=== PATIENT | female | born 1940 | race Caucasian/White ===

== ENCOUNTER 2019-11-10 12:40 | Emergency (ER) | payer MEDICARE, OTHER, SELFPAY ==
[2019-11-10 12:46] VITALS: BMI 36.2
--- NOTE | 2019-11-10 12:47 | ED_ITS ---
Entered by Gwendolyn Coleman, acting as scribe for Dylan Navarro DO HPI - Neuro Symptoms/Deficit General: Chief Complaint: Neuro Symptoms/Deficit Stated Complaint: possible stroke Time Seen by Provider: 11/10/19 12:47 Source: patient and family Mode of arrival: ambulatory Limitations: no limitations History of Present Illness: HPI Narrative: 79 yo female presents with dizziness. pt states this started around 12:45 today. pt states this is worsened with sudden movements. per family pt has a hx of TIA's. pt and family denies any other symptoms at this time. pt has a hx of dementia. 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 History of same: No Severity: mild Relieving factors: none Exacerbating factors: none Context: sudden onset (12:15) Associated symptoms: Reports other (dizziness); Deny chest pain, headache(s), malaise, nausea, syncope or vomiting Treatments Prior to Arrival: none Review of Systems General: Reports: 10 or more systems reviewed and unremarkable except in HPI and below Const: Denies: fever, chills, body aches, fatigue, malaise or night sweats Eyes: Denies: change in vision or blurry vision ENMT: Denies: throat pain, oral sores/lesions, dental pain, nasal discharge or nasal congestion Card: Denies: chest pain, palpitations, irregular heart rhythm, edema, syncope, shortness of breath on exertion, shortness of breath when lying down or leg pain with exertion Resp: Denies: shortness of breath, productive cough, non-productive cough or wheezing GI: Denies: abdominal pain, nausea, vomiting, vomiting blood, coffee grounds in vomit, difficulty swallowing, heartburn/indigestion, diarrhea, constipation, cramping, blood in stool or black tarry stool : Denies: flank pain, painful urination, urinary frequency, urinary urgency, urinary incontinence or blood in urine Musc: Denies: neck pain, back pain, extremity pain, extremity swelling, joint pain or joint swelling Skin/Breast: Denies: rash, itching or redness Neuro: Denies: headache, numbness in extremities, weakness in extremities, changes in sensation, lack of coordination, difficulty walking, frequent falls or confusion Psych: Denies: anxiety, depression, loss of interest, visual hallucinations, auditory hallucinations, suicidal ideation or homicidal ideation Endo: Denies: excessive urination, excessive thirst, tired all the time or cold intolerance Trey/Lymph: Denies: easy bruising, easy bleeding, petechiae, enlarged lymph nodes or tender lymph nodes PFSH ED PFSH: Statuses (acute, chronic, etc) shown below reflect problem list status as previously entered and may not be historically accurate Medical History (Updated 11/10/19 @ 14:48 by Dylan Navarro DO) History of TIA (transient ischemic attack) (Acute) Social History Smoking and tobacco status: former smoker NIH stroke score NIHSS: Level Of Consciousness - 1a: 0 Level Of Consciousness Questions - 1b: One Correct Level Of Consciousness Commands - 1c: Both Correct Best Gaze - 2: Normal Visual Hightower - 3: No Visual Loss Facial Palsy - 4: Normal Motor Arm Right - 5: No Drift Motor Arm Left - 5: No Drift Motor Leg Right - 6: No Drift Motor Leg Left - 6: No Drift Limb Ataxia - 7: Absent Sensory - 8: Normal Best Language - 9: No Aphasia Dysarthia - 10: Normal Extinction And Inattention - 11: 0 Score: Total Score: 1 Physical Exam Const: COMMON NORMALS: average body habitus GENERAL APPEARANCE: cooperat kezia, comfortable, well kempt and well developed NUTRITIONAL APPEARANCE: obese ORIENTATION/CONSCIOUSNESS: Yes awake and Yes oriented to place HENMT: COMMON NORMALS: normocephalic, head/scalp atraumatic, EAC's normal, TM's normal bilaterally, external nose normal, moist oral mucous membranes and oropharynx normal HEAD & SCALP: normocephalic and atraumatic NOSE: external nose normal EXTERNAL AUDITORY CANAL: EAC's normal TYMPANIC MEMBRANE: TM's normal bilaterally MOUTH: oral and palatal mucosa normal, lip normal and tongue normal THROAT: posterior oropharynx normal and tonsils normal Eye: COMMON NORMALS: PERRL, EOMs intact bilaterally, conjunctivae normal and no scleral icterus CONJUNCTIVA: Yes conjunctivae normal PUPIL: Yes PERRL Neck/C-Spine: COMMON NORMALS: full ROM, no lymphadenopathy, supple, no meningeal signs and thyroid normal THYROID: thyroid normal and asymmetrical Lymph: LYMPHATIC: no lymphadenopathy noted Resp: COMMON NORMALS: normal respiratory effort, no retractions, no use of accessory muscles and clear to auscultation bilaterally AUSCULTATION: clear to auscultation bilaterally Cardio: COMMON NORMALS: regular rate and regular rhythm RATE: regular rate RHYTHM: regular rhythm HEART SOUNDS: no murmurs GI: COMMON NORMALS: normal to inspection, nondistended, normoactive bowel sounds, soft to palpation and no hepatosplenomegaly PALPATION: Yes soft and Yes no hepatosplenomegaly : COMMON NORMALS: Yes no CVA tenderness BLADDER/KIDNEY EXAM: Yes no CVA tenderness Back/Pelvis: COMMON NORMALS: no CVA tenderness LUMBAR SPINE/LOWER BACK: Yes normal to inspection Extremity: COMMON NORMALS: no clubbing, cyanosis or edema, no calf tenderness and no pedal edema Neuro: SENSORIUM/ORIENTATION: Yes oriented to place MENINGEAL SIGNS: Yes no meningeal signs Psych: APPEARANCE: Yes well kempt Skin: COMMON NORMALS: no rashes or lesions noted and skin turgor normal GENERAL SKIN EXAM: no rashes or lesions noted and turgor normal Course ED course: CT shows remote strokes. At this time nothing acute nothing indicative by physical exam or imaging. Is not a really good last known well time. Her stroke score is 1 and I think that is more attributable to with her dementia. At this point would not recommend any sort of intervention. Recommend continuing aspirin daily follow-up with primary care. Vital Signs: Vital signs: Vital Signs Temperature 97.6 F 11/10/19 12:50 Pulse Rate 75 11/10/19 15:04 Respiratory Rate 20 H 11/10/19 15:04 Blood Pressure 179/85 11/10/19 15:04 Pulse Oximetry 97 11/10/19 15:04 MDM - Neuro Symptoms/Deficit Lab Data: Labs: Lab Results 11/10/19 11/10/19 11/10/19 Range/Units 13:01 13:09 13:09 WBC 7.2 (4.0-10.0) 10^3/ uL RBC 4.40 (4.1-5.3) 10^6/u L Hgb 14.4 (11.5-15.3) g/dL Hct 45.5 (37.0-47.0) % MCV 103.4 H (81-99) fL MCH 32.7 (28.0-34.0) pg MCHC 31.6 (30.0-36.0) g/dL RDW 12.6 (12.1-15.1) % Plt Count 164 (130-400) 10^3/c mm MPV 11.1 H (7.4-10.4) fL Neut % (Auto) 66.5 % Lymph % (Auto) 20.9 % [place] % (Auto) 9.2 % Eos % (Auto) 2.7 % Baso % (Auto) 0.4 % Neut # (Auto) 4.8 (1.8-7.7) 10^3/u L Lymph # (Auto) 1.5 (0.8-4.8) 10^3/u L [place] # (Auto) 0.7 (0.2-0.9) 10^3/u L Eos # (Auto) 0.2 (0.0-0.8) 10^3/u L Baso # (Auto) 0.0 (0.0-0.1) 10^3/u L Nucleated RBC % (a uto) 0 % Nucleated RBCs # 0.0 /100WBC PT 13.70 H (10.5-13.3) SECO NDS INR 1.01 (0.8-1.2) APTT 28.0 (23.9-36.7) SECO NDS Sodium (136-145) mmol/L Potassium (3.5-5.1) mmol/L Chloride (98-107) mmol/L Carbon Dioxide (22-29) mmol/L Anion Gap (5-19) BUN (8-23) mg/dL Creatinine (0.5-0.9) mg/dL Glucose (65-115) mg/dL POC Glucose 72 (70-110) mg/dL Calcium (8.5-10.5) mg/dL Total Bilirubin (0.15-1.2) mg/dL AST (0-32) U/L ALT (0-33) U/L Alkaline Phosphata se (35-105) IU/L Total Protein (6.6-8.7) g/dL Albumin (3.5-5.2) g/dL Globulin (1.3-4.6) g/dL 11/10/19 Range/Units 13:09 WBC (4.0-10.0) 10^3/ uL RBC (4.1-5.3) 10^6/u L Hgb (11.5-15.3) g/dL Hct (37.0-47.0) % MCV (81-99) fL MCH (28.0-34.0) pg MCHC (30.0-36.0) g/dL RDW (12.1-15.1) % Plt Count (130-400) 10^3/c mm MPV (7.4-10.4) fL Neut % (Auto) % Lymph % (Auto) % [place] % (Auto) % Eos % (Auto) % Baso % (Auto) % Neut # (Auto) (1.8-7.7) 10^3/u L Lymph # (Auto) (0.8-4.8) 10^3/u L [place] # (Auto) (0.2-0.9) 10^3/u L Eos # (Auto) (0.0-0.8) 10^3/u L Baso # (Auto) (0.0-0.1) 10^3/u L Nucleated RBC % (a uto) % Nucleated RBCs # /100WBC PT (10.5-13.3) SECO NDS INR (0.8-1.2) APTT (23.9-36.7) SECO NDS Sodium 142 (136-145) mmol/L Potassium 4.5 (3.5-5.1) mmol/L Chloride 104 (98-107) mmol/L Carbon Dioxide 27 (22-29) mmol/L Anion Gap 15.5 (5-19) BUN 24 H (8-23) mg/dL Creatinine 0.8 (0.5-0.9) mg/dL Glucose 103 (65-115) mg/dL POC Glucose (70-110) mg/dL Calcium 9.9 (8.5-10.5) mg/dL Total Bilirubin 0.4 (0.15-1.2) mg/dL AST 26 (0-32) U/L ALT 36 H (0-33) U/L Alkaline Phosphata se 87 (35-105) IU/L Total Protein 7.1 (6.6-8.7) g/dL Albumin 4.3 (3.5-5.2) g/dL Globulin 2.8 (1.3-4.6) g/dL Imaging Data^: CT Head: Radiologist's impression: [facility] [address] [place] [address] CT Scan Report Signed Patient: Adore Arnold #: [id number] : 1940Acct#:[id number] Age/Sex: 79 / FADM Date: 11/10/19 Loc: ERRoom/Bed: Attending Dr: Ordering Provider/Ordering MD: Dylan Navarro DO Date of Service: 11/10/19 Procedure(s): CT head wo con* [id number] Accession Number(s): [id number] Report Number: [id number] WS: [id number] CT HEAD NONCONTRAST HISTORY: Symptoms of Acute Stroke TECHNIQUE: Contiguous axial imaging performed through the brain in 2.5 mm imaging. Bone and soft tissue windows. Sagittal and coronal reformats reviewed. All CT scans at [facility] use at least one of these dose optimization techniques: automated exposure control; mA and/or kV adjustment per patient size (includes targeted exams where dose is matched to clinical indicat ion); or iterative reconstruction. DLP: 806.97 mGy.cm COMPARISON: 2016 No acute intracranial hemorrhage, midline shift or mass effect. Remote infarct involving the LEFT posterior cerebral arterial distribution. Infarct extends around the temporal horn of the LEFT lateral ventricle. Prior infarct in the LEFT thalamus. Additional chronic microvascular ischemic changes. Ventricles: Mildly prominent ventricles on the basis of atrophy. Paranasal sinuses: As visualized are clear. Mastoid air cells: Well pneumatized. Calvarium and scalp: Skull is intact with no soft tissue edema or swelling. Notified Dylan Navarro DO at 11/10/2019 2:[address]/CT head wo con* [id number] IMPRESSION: 1. No acute hemorrhage or infarct. 2. Large remote LEFT DENTAL DETAIL REPRESENTATIVE territory infarct and remote lacunar infarct RIGHT thalamus. Dictated By:Allison Valiente DO Signed By:Allison Valiente DOSigned Date/Time:11/10/19 1400 Discharge Plan Discharge Patient Disposition: Home, Self-Care Clinical Impression: Transient cerebral ischemia, Dementia, Benign essential HTN Condition: Stable Prescriptions: New aspirin 81 mg tablet,delayed release (DR/EC) 81 mg PO DAILY Qty: 30 RF: 0 lisinopril 10 mg tablet 10 mg PO DAILY Qty: 30 RF: 0 No Action atorvastatin 40 mg Tablet 40 mg PO DAILY RF: 0 carvedilol 6.25 mg tablet 6.25 mg PO BID RF: 0 cod liver oil Capsule 1 cap PO DAILY RF: 0 clopidogrel 75 mg tablet 75 mg PO DAILY RF: 0 citalopram 20 mg Tablet 20 mg PO DAILY RF: 0 L-Lysine 500 mg Tablet 500 mg PO DAILY RF: 0 Ocuvite Eye Health 50 mg-15 unit- 4.5 mg-2.5 mg Tablet,Chewable 1 tab PO DAILY RF: 0 Discharge Orders: Discharge Order (Routine); Ordered 11/10/19 Ordered By: Dylan Navarro Referrals: Abdi Jara DO [Primary Care Provider] - Discharge Diet: Usual diet Discharge Activity: Resume usual activity Activity Restrictions/Additional Instructions: 81 mg aspirin daily, follow-up with your primary care doctor return if further problems Discharge Date/Time: 11/10/19 15:05 Coding Level of Care Code ED Document Coordinator for Chg Fwd Exam Problem Focused The documentation recorded by the Jared chao Bridget Annette, accurately reflects the service I personally performed and the decisions made by Melanie ramirez Curtis L, DO Nov 10, 2019 12:40
[2019-11-10 12:50] VITALS: BP 202/83; PULSE 51; RESP 18; TEMP 36.4; O2SAT 96
--- NOTE | 2019-11-10 12:50 | ECG_ITS ---
Measurements Intervals [place] Rate: 50 P: 71 ME: 156 QRS: -10 QRSD: 83 T: 58 QT: 444 QTc: 407 SINUS BRADYCARDIA Compared to ECG 06/29/2016 15:14:17 Sinus rhythm no longer present Electronically Signed On 11-10-2019 20:06:38 JAPANESE INTERPRETER by Aldair Vazquez M.D. [email or web address]
--- NOTE | 2019-11-10 12:50 | CT_ITS ---
WS: [id number] CT HEAD NONCONTRAST HISTORY: Symptoms of Acute Stroke TECHNIQUE: Contiguous axial imaging performed through the brain in 2.5 mm imaging. Bone and soft tiss ue windows. Sagittal and coronal reformats reviewed. All CT scans at [facility] use at ast one of these dose optimization techniques: automated exposure control; mA and/or kV adjustment pe r patient size (includes targeted exams where dose is matched to clinical indication); or iterative r econstruction. DLP: 806.97 mGy.cm COMPARISON: 2016 No acute intracranial hemorrhage, midline shift or mass effect. Remote infarct involving the LEFT posterior cerebral arterial distribution. Infarct extends around th e temporal horn of the LEFT lateral ventricle. Prior infarct in the LEFT thalamus. Additional chroni c microvascular ischemic changes. Ventricles: Mildly prominent ventricles on the basis of atrophy. Paranasal sinuses: As visualized are clear. Mastoid air cells: Well pneumatized. Calvarium and scalp: Skull is intact with no soft tissue edema or swelling. Notified Dylan Navarro DO at 11/10/2019 2:[address]/CT head wo con* [id number] IMPRESSION: 1. No acute hemorrhage or infarct. 2. Large remote LEFT CORE MAKER territory infarct and remote lacunar infarct RIGHT th alamus.
[2019-11-10 13:04] LABS: Glucose Point of Care 72 mg/dL (70-110)
[2019-11-10 13:13] VITALS: O2SAT 97
[2019-11-10 13:18] LABS: Basophils % 0.4 %; Eosinophils # 0.2 10^3/uL (0.0-0.8); Eosinophils % 2.7 %; Hematocrit 45.5 % (37.0-47.0); Hemoglobin 14.4 g/dL (11.5-15.3); Lymphocytes # 1.5 10^3/uL (0.8-4.8); Lymphocytes % 20.9 %; Mean Corpuscular HGB Conc 31.6 g/dL (30.0-36.0); Mean Corpuscular Hemoglobin 32.7 pg (28.0-34.0); Mean Corpuscular Volume 103.4 fL (81-99); Mean Platelet Volume 11.1 fL (7.4-10.4); Monocytes # 0.7 10^3/uL (0.2-0.9); Monocytes % 9.2 %; Neutrophils # 4.8 10^3/uL (1.8-7.7); Neutrophils % 66.5 %; Nucleated Red Blood Cells % 0 %; Platelet Count 164 10^3/cmm (130-400); Red Cell Distribution Width 12.6 % (12.1-15.1); White Blood Count 7.2 10^3/uL (4.0-10.0)
[2019-11-10 13:25] LABS: INR 1.01 (0.8-1.2)
[2019-11-10 13:41] LABS: Alanine Aminotransferase 36 U/L (0-33); Albumin Level 4.3 g/dL (3.5-5.2); Alkaline Phosphatase 87 IU/L (35-105); Anion Gap 15.5 (5-19); Aspartate Amino Transferase 26 U/L (0-32); Blood Urea Nitrogen 24 mg/dL (8-23); Calcium 9.9 mg/dL (8.5-10.5); Carbon Dioxide 27 mmol/L (22-29); Chloride 104 mmol/L (98-107); Globulin 2.8 g/dL (1.3-4.6); Glucose 103 mg/dL (65-115); Potassium 4.5 mmol/L (3.5-5.1); Sodium 142 mmol/L (136-145); Total Bilirubin 0.4 mg/dL (0.15-1.2); Total Protein 7.1 g/dL (6.6-8.7)
[2019-11-10] MEDS: sodium chloride 0.9% 1,000 ML 999 ML IV (14:04)
[2019-11-10 15:04] VITALS: BP 179/85; PULSE 75; RESP 20; O2SAT 97
== END 2019-11-10 15:05 | disposition home or self-care (01) ==
PROVIDERS: Emergency Provider Family Medicine; Family Provider Electrodiagnostic Medicine; PCP Electrodiagnostic Medicine
DX: G45.9 Transient cerebral ischemic attack, unspecified (principal); F03.90 Unspecified dementia, unspecified severity, without behavioral disturbance, psychotic disturbance, mood disturbance, and anxiety; I10 Essential (primary) hypertension; Z79.02 Long term (current) use of antithrombotics/antiplatelets; Z87.891 Personal history of nicotine dependence; Z86.73 Personal history of transient ischemic attack (TIA), and cerebral infarction without residual deficits
CPT/HCPCS: 36415; 36416; 70450; 80053; 82962; 85025; 85610; 85730; 93005; 96360; 99283; 99284; J7030

== ENCOUNTER 2020-07-23 14:19 | Emergency (ER) | payer MEDICARE, OTHER, SELFPAY ==
[2020-07-23 14:21] VITALS: BP 162/74; PULSE 73; RESP 18; TEMP 36.6; O2SAT 100; BMI 54.8
--- NOTE | 2020-07-23 14:40 | CTR_ITS ---
PROCEDURE INFORMATION: Exam: CT Maxillofacial Without Contrast Exam date and time: 07/23/2020 2:45 PM Age: 80 years old Clinical indication: Injury or trauma; Fall; Blunt trauma (contusions or hematomas); Nose; Additional info: Fall, facial injury TECHNIQUE: Imaging protocol: Computed tomography images of the face without contrast. Radiation optimization: All CT scans at this facility use at least one of these dose optimization techniques: automated exposure control; mA and/or kV adjustment per patient size (includes targeted exams where dose is matched to clinical indication); or iterative reconstruction. COMPARISON: No relevant prior studies available. RADIATION DOSE METRICS: Total DLP (mGy-cm): 722.49 FINDINGS: Orbital cavity: Orbits are normal. Globes are unremarkable. Bones/joints: There is a bilateral comminuted nasal fracture. No other fractures are identified. The orbital angulo, zygomatic arch and pterygoid plates are intact. Paranasal sinuses: Normal. No air-fluid levels. Soft tissues: There is a small amount of gas in the soft tissues adjacent to the nasal bone fracture. CT/CT facial bones wo con* [id number] IMPRESSION: There is a bilateral comminuted nasal fracture. Radiation Dose CTDIVOL = (mGy): DLP = 722.49 (mGy-cm)
--- NOTE | 2020-07-23 14:40 | CTR_ITS ---
PROCEDURE INFORMATION: Exam: CT Head Without Contrast Exam date and time: 07/23/2020 2:45 PM Age: 80 years old Clinical indication: Injury or trauma; Fall; Blunt trauma (contusions or hematomas); Injury date: Today; Additional info: Fall, head injury TECHNIQUE: Imaging protocol: Computed tomography of the head without contrast. Radiation optimization: All CT scans at this facility use at least one of these dose optimization techniques: automated exposure control; mA and/or kV adjustment per patient size (includes targeted exams where dose is matched to clinical indication); or iterative reconstruction. COMPARISON: CT head wo con* [id number] 11/10/2019 1:51 PM RADIATION DOSE METRICS: Total DLP (mGy-cm): 2680.17 FINDINGS: Brain: There is encephalomalacia in the left parietooccipital lobe. Moderate white matter disease and volume loss are identified. There is no acute infarct or edema. No intracranial hemorrhage. Cerebral ventricles: No ventriculomegaly. Bones/joints: There is a bilateral comminuted nasal fracture. Paranasal sinuses: Visualized sinuses are unremarkable. No fluid levels. Mastoid air cells: Visualized mastoid air cells are well aerated. Soft tissues: There is superficial soft tissue swelling along the midline frontal calvarium. CT/CT head wo con* [id number] IMPRESSION: There is a comminuted nasal fracture. No intracranial hemorrhage. Radiation Dose CTDIVOL = (mGy): DLP = 2680.17 (mGy-cm)
--- NOTE | 2020-07-23 14:44 | ED_ITS ---
HPI - Fall General: Chief Complaint: Fall Stated Complaint: FALL/HEAD INJURY Time Seen by Provider: 07/23/20 14:33 Source: patient and family (daughter) Mode of arrival: ambulatory Limitations: no limitations History of Present Illness: HPI Narrative: Patient is an 80-year-old female who was walking in a store that has uneven floors and she lost her balance, falling face first onto the concrete floor. She has a large hematoma on her forehead, laceration to the bridge of her nose, and some abrasions to her upper lips. She denies loss of consciousness. She complains of pain in the area of injuries on the head and face. She does not take anticoagulation but he is on aspirin and Plavix. complaint: fall Fall from: standing Fall witnessed: yes, by family Place fall occurred: other ([employer]) Loss of consciousness: None Prolonged down time: no Symptoms prior to fall: none Context: tripped/slipped Location of injury: head and face Quality: sharp Associated symptoms-after fall: Denies abdominal pain, headache(s) or neck pain Review of Systems General: Reports: 10 or more systems reviewed and unremarkable except in HPI and below Const: Denies: fever(s), chills or body aches Eyes: Denies: change in vision or blurry vision ENMT: Reports: epistaxis; Denies: throat pain, enlarged tonsils, odynophagia, hoarseness, mouth pain or swelling of lips/tongue Card: Denies: palpitations, irregular heart rhythm, edema or swelling of feet/ankles Resp: Denies: dyspnea, productive cough or non-productive cough GI: Denies: abdominal pain, nausea or vomiting : Denies: flank pain, difficulty voiding, dysuria, urinary frequency, urinary urgency or urinary hesitancy Musc: Denies: neck pain, back pain or extremity swelling Skin/Breast: Reports: sores; Denies: rash, pruritus or erythema Neuro: Denies: headache(s), numbness in extremities or weakness in extremities Endo: Denies: polyuria, polydipsia or tired all the time [facility] ED PFSH: Medical History History of TIA (transient ischemic attack) Social History Smoking and tobacco status: former smoker Physical Exam Const: COMMON NORMALS: no acute distress, average body habitus, patient oriented x3, no limitations, healthy appearing, alert and well nourished HENMT: COMMON NORMALS: normocephalic and moist oral mucous membranes HEAD & SCALP: normocephalic, abrasion, contusion, hematoma (large hematoma on her forehead) and other (2 cm laceration to the bridge of her nose.) FACE & SINUS: abrasion NOSE: Abnormal external nose present Eye: COMMON NORMALS: Equal, round and reactive pupils present, EOMs intact bilaterally, conjunctivae normal and no scleral icterus CONJUNCTIVA: Yes conjunctivae normal PUPIL: Yes Equal, round and reactive pupils present Neck/C-Spine: COMMON NORMALS: full ROM, supple, no meningeal signs, no JVD and No carotid bruits Chest: COMMONS NORMALS: normal inspection of the chest and normal palpation of entire chest wall Resp: COMMON NORMALS: normal respiratory effort, No retractions, No use of accessory muscles, clear to auscultation bilaterally and percussion normal AUSCULTATION: clear to auscultation bilaterally PERCUSSION: percussion normal Cardio: COMMON NORMALS: no JVD, regular rate, regular rhythm, S1 normal heart sound present, S2 normal heart sound present, No gallops present (Cardio), No clicks present (Cardio), No murmurs present (Cardio), No rub (Cardio) and Peripheral pulses 2+ throughout RATE: regular rate RHYTHM: regular rhythm HEART SOUNDS: S1 normal heart sound present and S2 normal heart sound present PERIPHERAL PULSES: Peripheral pulses 2+ throughout GI: COMMON NORMALS: Normal to inspection, nondistended, normoactive bowel sounds present, Soft to palpation, non-tender, No hepatosplenomegaly present, no masses and no bruits PALPATION: Yes Soft to palpation and Yes No hepatosplenomegaly present Extremity: COMMON NORMALS: normal to inspection, full ROM, capillary refill normal, no calf tenderness and no pedal edema Neuro: COMMON NORMALS: patient oriented x3 SENSORIUM/ORIENTATION: Yes alert MENINGEAL SIGNS: Yes no meningeal signs Skin: COMMON NORMALS: no rashes or lesions noted, no wounds, turgor normal, no jaundice, no petechiae and no mottling GENERAL SKIN EXAM: no rashes or lesions noted and turgor normal Procedures Laceration Laceration 1: Site: face (nose) Size (cm): 2 Description: linear Depth: simple, single layer Local Anesthetic: lidocaine 1% and with epi Amount of anesthesia used (mL): 3 Pre-repair: wound explored and irrigated extensively Skin layer closed with: nylon Size (cm): 5-0 Number of sutures: 4 Technique: simple, interrupted Course ED course: Unfortunate 80 year old female who fell in a store and sustained nasal bone fractures. She has no other fractures. She also sustained a nasal laceration that was sutured successfully. She was given wound care and nasal bone fracture instructions. Consultations: Consultation #1: Iliana Menchaca, E[place] at [facility] [place] Patient can be discharged to follow up with her in the office. Time: 18:19 Vital Signs: Vital signs: Vital Signs Temperature 97.8 F 07/23/20 14:21 Pulse Rate 70 07/23/20 20:02 Respiratory Rate 16 07/23/20 20:02 Blood Pressure 125/73 07/23/20 20:02 Pulse Oximetry 95 07/23/20 20:02 MDM - Fall MDM Narrative: Medical decision making narrative: 80-year-old female who sustained nasal bone fractures following a fall as well as a nasal laceration and abrasions. No loss of consciousness and head CT was negative for acute findings. The wound was sutured, shows referred to ENT and she is to also follow-up with her primary care provider Medical Records: Attestation: I reviewed the patient's medical records. Imaging Data^: CT Head: Attestation: I personally reviewed and interpreted this imaging study as fol lows: Radiologist's impression: [address] [place] [address] CT Scan Report Signed Patient: Adore Arnold #: [id number] : 1940Acct#:[id number] Age/Sex: 80 / FADM Date: 07/23/20 Loc: ERRoom/Bed: Attending Dr: Ordering Provider/Ordering MD: Stanley Kumar MD, [facility] Date of Service: 07/23/20 Procedure(s): CT head wo con* [id number] Accession Number(s): [id number] Report Number: [id number] PROCEDURE INFORMATION: Exam: CT Head Without Contrast Exam date and time: 07/23/2020 2:45 PM Age: 80 years old Clinical indication: Injury or trauma; Fall; Blunt trauma (contusions or hematomas); Injury date: Today; Additional info: Fall, head injury TECHNIQUE: Imaging protocol: Computed tomography of the head without contrast. Radiation optimization: All CT scans at this facility use at least one of these dose optimization techniques: automated exposure control; mA and/or kV adjustment per patient size (includes targeted exams where dose is matched to clinical indication); or iterative reconstruction. COMPARISON: CT head wo con* [id number] 11/10/2019 1:51 PM RADIATION DOSE METRICS: Total DLP (mGy-cm): 2680.17 FINDINGS: Brain: There is encephalomalacia in the left parietooccipital lobe. Moderate white matter disease and volume loss are identified. There is no acute infarct or edema. No intracranial hemorrhage. Cerebral ventricles: No ventriculomegaly. Bones/joints: There is a bilateral comminuted nasal fracture. Paranasal sinuses: Visualized sinuses are unremarkable. No fluid levels. Mastoid air cells: Visualized mastoid air cells are well aerated. Soft tissues: There is superficial soft tissue swelling along the midline frontal calvarium. CT/CT head wo con* [id number] IMPRESSION: There is a comminuted nasal fracture. No intracranial hemorrhage. Radiation Dose CTDIVOL = (mGy): DLP = 2680.17 (mGy-cm) Dictated By:Moiz Cerda MD Signed By:Moiz Cerda MDSigned Date/Time:07/23/20 1537 DD/ [address]: Attestation: I personally reviewed and interpreted this imaging study as follows: Radiologist's impression: [address] [address] [address] Scan Report Signed Patient: Adore Arnold #: [id number] : 1940Acct#:[id number] Age/Sex: 80 / FADM Date: 07/23/20 Loc: ERRoom/Bed: Attending Dr: Ordering Provider/Ordering MD: Stanley Kumar MD, [facility] Date of Service: 07/23/20 Procedure(s): CT facial bones wo con* [id number] Accession Number(s): [id number] Report Number: [id number] PROCEDURE INFORMATION: Exam: CT Maxillofacial Without Contrast Exam date and time: 07/23/2020 2:45 PM Age: 80 years old Clinical indication: Injury or trauma; Fall; Blunt trauma (contusions or hematomas); Nose; Additional info: Fall, facial injury TECHNIQUE: Imaging protocol: Computed tomography images of the face without contrast. Radiation optimization: All CT scans at this facility use at least one of these dose optimization techniques: automated exposure control; mA and/or kV adjustment per patient size (includes targeted exams where dose is matched to clinical indication); or iterative reconstruction. COMPARISON: No relevant prior studies available. RADIATION DOSE METRICS: Total DLP (mGy-cm): 722.49 FINDINGS: Orbital cavity: Orbits are normal. Globes are unremarkable. Bones/joints: There is a bilateral comminuted nasal fracture. No other fractures are identified. The orbital angulo, zygomatic arch and pterygoid plates are intact. Paranasal sinuses: Normal. No air-fluid levels. Soft tissues: There is a small amount of gas in the soft tissues adjacent to the nasal bone fracture. CT/CT facial bones wo con* [id number] IMPRESSION: There is a bilateral comminuted nasal fracture. Radiation Dose CTDIVOL = (mGy): DLP = 722.49 (mGy-cm) Dictated By:Moiz Cerda MD Signed By:Moiz Cerda MDSigned Date/Time:07/23/201541 DD/ 1539 Discharge Plan Discharge Patient Disposition: Home Clinical Impression: Hematoma and contusion Fractured nasal bones Qualifiers: Encounter type: initial encounter Fracture type: closed Qualified Code(s): S02.2XXA - Fracture of nasal bones, initial encounter for closed fracture Abrasion of face Qualifiers: Encounter type: initial encounter Qualified Code(s): S00.81XA - Abrasion of other part of head, initial encounter Mild closed head injury Qualifiers: Encounter type: initial encounter Qualified Code(s): S09.90XA - Unspecified injury of head, initial encounter Contusion of face Qualifiers: Encounter type: initial encounter Qualified Code(s): S00.83XA - Contusion of other part of head, initial encounter Laceration of nose Qualifiers: Encounter type: initial encounter Qualified Code(s): S01.21XA - Laceration without foreign body of nose, initial encounter Condition: Stable Prescriptions: [place] 5-325 mg tablet 1 tab PO Q8H PRN (Reason: nasal fracture) Qty: 20 RF: 0 Keflex 500 mg capsule 500 mg PO Q8H 7 Days Qty: 21 RF: 0 Continued aspirin 81 mg tablet,delayed release (DR/EC) 81 mg PO DAILY Qty: 30 RF: 0 lisinopril 10 mg tablet 10 mg PO DAILY Qty: 30 RF: 0 atorvastatin 40 mg Tablet 40 mg PO DAILY RF: 0 carvedilol 6.25 mg tablet 6.25 mg PO BID RF: 0 cod liver oil Capsule 1 cap PO DAILY RF: 0 clopidogrel 75 mg tablet 75 mg PO DAILY RF: 0 citalopram 20 mg Tablet 20 mg PO DAILY RF: 0 L-Lysine 500 mg Tablet 500 mg PO DAILY RF: 0 Ocuvite Eye Health 50 mg-15 unit- 4.5 mg-2.5 mg Tablet,Chewable 1 tab PO DAILY RF: 0 Discharge Orders: Discharge Order (Routine); Ordered 07/23/20 Ordered By: Stanley Kumar Referrals: Diego Jarrett MD [Physician] - Abdi Jara DO [Primary Care Provider] - 1-3 days Discharge Diet: Usual diet Discharge Activity: Increase activity as tolerated Patient Instructions: Nasal Fracture (ED), Laceration (ED), Minor Head Injury (ED) Activity Restrictions/Additional Instructions: Return for any new or worsening symptoms. Follow-up with the ear nose and throat doctor within 5 days. Do not blow your nose as it may make the fracture worse. Get some [id number]-[id number] saline to rinse out your nose as often as needed. Take the pain medication as needed for pain and the antibiotic as prescribed. The stitches will need to come out in 5 to 7 days. Discharge Date/Time: 07/23/20 20:05 Coding Level of Care Code ED Wound/Ostomy Clinical Nurse Specialist for Srinath Hunt Exam Comprehensive
[2020-07-23 17:15] VITALS: RESP 18
[2020-07-23] MEDS: morphine 4 mg/mL SDV 1 mL IM (17:15)
[2020-07-23] MEDS: ondansetron 2 mg/ML SDV 2 mL 4 MG IM (18:36)
[2020-07-23 20:02] VITALS: BP 125/73; PULSE 70; RESP 16; O2SAT 95
[2020-07-23] MEDS: bacitracin ointment Pkt 1 EACH TOPICAL (20:02)
--- NOTE | 2020-07-26 15:28 | DCPLANNER ---
manager crisis had message to schedule a follow up appointment for patient with Dr. Jarrett, ENT. manager crisis faxed patients information to the office of Dr. Jarrett. Clinic will call patient with appointment information.
--- NOTE | 2020-07-29 11:03 | DCPLANNER ---
Patient has a follow up appointment scheduled for 07.29.[address] Jarrett. Patient is aware of appointment.
--- NOTE | 2020-07-30 11:22 | DCPLANNER ---
Patient had a follow up appointment scheduled for 07.29.[address] Jarrett - patient did attend appointment.
== END 2020-07-23 20:05 | disposition home or self-care (01) ==
PROVIDERS: Emergency Provider Family Medicine; Family Provider Electrodiagnostic Medicine; PCP Electrodiagnostic Medicine
DX: S02.2XXA Fracture of nasal bones, initial encounter for closed fracture (principal); S09.8XXA Other specified injuries of head, initial encounter; S00.83XA Contusion of other part of head, initial encounter; S01.21XA Laceration without foreign body of nose, initial encounter; Z79.82 Long term (current) use of aspirin; Z79.02 Long term (current) use of antithrombotics/antiplatelets; Z86.73 Personal history of transient ischemic attack (TIA), and cerebral infarction without residual deficits; Z87.891 Personal history of nicotine dependence; W01.0XXA Fall on same level from slipping, tripping and stumbling without subsequent striking against object, initial encounter; Y92.512 Supermarket, store or market as the place of occurrence of the external cause
CPT/HCPCS: 12011; 12345; 70450; 70486; 96372; 99281; 99283; J2270; J2405

== ENCOUNTER 2021-06-08 09:48 | Emergency (ER) | payer MEDICARE, OTHER, SELFPAY ==
--- NOTE | 2021-06-08 10:02 | ED_ITS ---
HPI - Neuro Symptoms/Deficit General: Chief Complaint: Altered Mental Status Stated Complaint: ALOC, TIA Time Seen by Provider: 06/08/21 10:02 History of Present Illness: HPI Narrative: 81-year-old female presents emergency room with a history of dementia is at the [facility] this morning was poorly responsive and did not seem to be able to get up. On arrival here is completely resolved. She has had episodes like this in the past as well she has some mild dementia has a family member at the bedside. No evidence of chest or abdominal pain no complaints. No fever recently. Onset (ago): hour(s) Timing confirmed by: family member History of same: Yes Severity: mild Quality: weak, numb and tingling Relieving factors: none Exacerbating factors: none On Anticoagulants: Yes Associated symptoms: Deny chest pain, cough, diaphoresis, fevers/chills, headache(s), anorexia, malaise, nausea, seizures, short of breath, syncope, tingling, vertigo, vomiting or weakness Treatments Prior to Arrival: none Review of Systems Const: Denies: malaise or diaphoresis ENMT: Denies: throat pain, ear or mastoid pain, nasal discharge or nasal congestion Card: Denies: chest pain or syncope Resp: Denies: dyspnea, productive cough or non-productive cough GI: Denies: nausea or vomiting : Denies: flank pain, difficulty voiding, dysuria, urinary frequency or urinary urgency Skin/Breast: Denies: rash or pruritus Neuro: Reports: other (Cognitive changes dementia); Denies: headache(s), vertigo, behavioral changes or Slurred speech present [facility] ED PFSH: Medical History History of TIA (transient ischemic attack) Social History Smoking and tobacco status: former smoker NIH stroke score NIHSS: Level Of Consciousness - 1a: 1 Level Of Consciousness Questions - 1b: One Correct Level Of Consciousness Commands - 1c: One Correct Best Gaze - 2: Normal Visual Hightower - 3: No Visual Loss Facial Palsy - 4: Normal Motor Arm Right - 5: No Drift Motor Arm Left - 5: No Drift Motor Leg Right - 6: No Drift Motor Leg Left - 6: No Drift Limb Ataxia - 7: Absent Sensory - 8: Normal Best Language - 9: No Aphasia Dysarthia - 10: Normal Extinction And Inattention - 11: 1 Score: Total Score: 4 Physical Exam Const: COMMON NORMALS: no acute distress GENERAL APPEARANCE: cooperative and comfortable ORIENTATION/CONSCIOUSNESS: Yes awake, Yes oriented to person, Yes oriented to place and Yes oriented to time HENMT: COMMON NORMALS: normocephalic, atraumatic and hearing grossly normal bilaterally HEAD & SCALP: normocephalic and atraumatic Neck/C-Spine: COMMON NORMALS: no JVD Resp: COMMON NORMALS: normal respiratory effort, No retractions, No use of accessory muscles and clear to auscultation bilaterally AUSCULTATION: clear to auscultation bilaterally Cardio: COMMON NORMALS: no JVD, regular rate, regular rhythm and No murmurs present (Cardio) RATE: regular rate RHYTHM: regular rhythm GI: COMMON NORMALS: Soft to palpation and No hepatosplenomegaly present AUSCULTATION: Yes normoactive bowel sounds PALPATION: Yes Soft to palpation, No Tenderness to palpation present (GI), No Guarding due to palpation present (GI) and Yes No hepatosplenomegaly present Extremity: COMMON NORMALS: normal to inspection, capillary refill normal, no clubbing, cyanosis or edema, no calf tenderness and no pedal edema Neuro: SENSORIUM/ORIENTATION: Yes oriented to person, Yes oriented to place and Yes oriented to time Skin: COMMON NORMALS: no rashes or lesions noted GENERAL SKIN EXAM: no rashes or lesions noted Course Vital Signs: Vital signs: Vital Signs Temperature 97.7 F 06/08/21 10:07 Pulse Rate 55 L 06/08/21 11:22 Respiratory Rate 19 H 06/08/21 11:22 Blood Pressure 207/82 06/08/21 11:22 Pulse Oximetry 11 L 06/08/21 11:22 MDM - Neuro Symptoms/Deficit MDM Narrative: Medical decision making narrative: No symptoms on arrival no symptoms at the completion of the work-up discussed with family members discharge home continue to medications no changes. She did score for an eight score but I think those are all dementia related not significant for an acute neurologic event. Lab Data: Labs: Lab Results 06/08/21 06/08/21 06/08/21 Range/Units 10:50 10:50 11:13 WBC 8.6 (4.0-10.0) 10^3/ uL RBC 4.19 (4.1-5.3) 10^6/u L Hgb 13.9 (11.5-15.3) g/dL Hct 43.0 (37.0-47.0) % MCV 102.6 H (81-99) fl MCH 33.2 (28.0-34.0) pg MCHC 32.3 (30.0-36.0) g/dL RDW 13.8 (12.1-15.1) % Plt Count 142 (130-400) 10^3/c mm MPV 11.3 H (7.4-10.4) fL Neut % (Auto) 65.9 % Lymph % (Auto) 20.9 % [place] % (Auto) 8.6 % Eos % (Auto) 3.6 % Baso % (Auto) 0.6 % Neut # (Auto) 5.65 (1.8-7.7) 10^3/u L Lymph # (Auto) 1.8 (0.8-4.8) 10^3/u L [place] # (Auto) 0.7 (0.2-0.9) 10^3/u L Eos # (Auto) 0.3 (0.0-0.8) 10^3/u L Baso # (Auto) 0.1 (0.0-0.1) 10^3/u L Nucleated RBC % (a uto) 0 % Nucleated RBCs # 0.0 /100WBC Sodium 143 (136-145) mmol/L Potassium 4.6 (3.5-5.1) mmol/L Chloride 106 (98-107) mmol/L Carbon Dioxide 30 H (22-29) mmol/L Anion Gap 11.6 (5-19) BUN 24 H (8-23) mg/dL Creatinine 0.8 (0.5-0.9) mg/dL GFR Calculation Not Reportable Glucose 90 (65-115) mg/dL POC Glucose (70-110) mg/dL Calculated Osmolal ity 300 H (285-295) mOsm/k g Calcium 8.8 (8.5-10.5) mg/dL Total Bilirubin 0.4 (0.15-1.2) mg/dL AST 19 (0-32) U/L ALT 12 (0-33) U/L Alkaline Phosphata se 85 (35-105) IU/L Total Protein 5.9 L (6.6-8.7) g/dL Albumin 3.9 (3.5-5.2) g/dL Globulin 2.0 (1.3-4.6) g/dL Urine Color Yellow (Yellow) Urine Appearance Clear (CLEAR) Urine pH 5 (5-7) Ur Specific Gravit y 1.015 (1.005-1.030) Urine Protein Neg (Negative) Urine Glucose (UA) Norm (Normal) Urine Ketones Negative (Negative) Urine Blood Neg (Negative) Urine Nitrate Negative (Negative) Urine Bilirubin Neg (Negative) Urine Urobilinogen Norm (Negative) mg/dL Ur Leukocyte Angela ase Negative (Negative) 06/08/21 Range/Units 11:23 WBC (4.0-10.0) 10^3/ uL RBC (4.1-5.3) 10^6/u L Hgb (11.5-15.3) g/dL Hct (37.0-47.0) % MCV (81-99) fl MCH (28.0-34.0) pg MCHC (30.0-36.0) g/dL RDW (12.1-15.1) % Plt Count (130-400) 10^3/c mm MPV (7.4-10.4) fL Neut % (Auto) % Lymph % (Auto) % [place] % (Auto) % Eos % (Auto) % Baso % (Auto) % Neut # (Auto) (1.8-7.7) 10^3/u L Lymph # (Auto) (0.8-4.8) 10^3/u L [place] # (Auto) (0.2-0.9) 10^3/u L Eos # (Auto) (0.0-0.8) 10^3/u L Baso # (Auto) (0.0-0.1) 10^3/u L Nucleated RBC % (a uto) % Nucleated RBCs # /100WBC Sodium (136-145) mmol/L Potassium (3.5-5.1) mmol/L Chloride (98-107) mmol/L Carbon Dioxide (22-29) mmol/L Anion Gap (5-19) BUN (8-23) mg/dL Creatinine (0.5-0.9) mg/dL GFR Calculation Glucose (65-115) mg/dL POC Glucose 91 (70-110) mg/dL Calculated Osmolal ity (285-295) mOsm/k g Calcium (8.5-10.5) mg/dL Total Bilirubin (0.15-1.2) mg/dL AST (0-32) U/L ALT (0-33) U/L Alkaline Phosphata se (35-105) IU/L Total Protein (6.6-8.7) g/dL Albumin (3.5-5.2) g/dL Globulin (1.3-4.6) g/dL Urine Color (Yellow) Urine Appearance (CLEAR) Urine pH (5-7) Ur Specific Gravit y (1.005-1.030) Urine Protein (Negative) Urine Glucose (UA) (Normal) Urine Ketones (Negative) Urine Blood (Negative) Urine Nitrate (Negative) Urine Bilirubin (Negative) Urine Urobilinogen (Negative) mg/dL Ur Leukocyte Angela ase (Negative) Discharge Plan Discharge Patient Disposition: Home Clinical Impression: TIA (transient ischemic attack), Dementia Condition: Stable Prescriptions: No Action [place] 5-325 mg tablet 1 tab PO Q8H PRN (Reason: nasal fracture) Qty: 20 RF: 0 aspirin 81 mg tablet,delayed release (DR/EC) 81 mg PO DAILY Qty: 30 RF: 0 lisinopril 10 mg tablet 10 mg PO DAILY Qty: 30 RF: 0 atorvastatin 40 mg Tablet 40 mg PO DAILY RF: 0 carvedilol 6.25 mg tablet 6.25 mg PO BID RF: 0 cod liver oil Capsule 1 cap PO DAILY RF: 0 clopidogrel 75 mg tablet 75 mg PO DAILY RF: 0 citalopram 20 mg Tablet 20 mg PO DAILY RF: 0 L-Lysine 500 mg Tablet 500 mg PO DAILY RF: 0 Ocuvite Eye Health 50 mg-15 unit- 4.5 mg-2.5 mg Tablet,Chewable 1 tab PO DAILY RF: 0 Discharge Orders: Discharge ED (Routine); Ordered 06/08/21 Ordered By: Dylan Navarro Referrals: Abdi Jara DO [Primary Care Provider] - Discharge Diet: Usual diet Discharge Activity: Resume usual activity Patient Instructions: Opioid Safety Coding Level of Care Code ED Is Project Manager for Srinath Hunt
[2021-06-08 10:07] VITALS: BP 178/77; PULSE 56; RESP 18; TEMP 36.5; O2SAT 97; BMI 36.5
--- NOTE | 2021-06-08 10:11 | CT_ITS ---
WS: [id number] CT HEAD TECHNIQUE: Noncontrast CT of the head obtained from the skullbase to the vertex. CLINICAL INFORMATION: Symptoms of Acute Stroke COMPARISON: None. DLP: 992.[address] scans at [facility] use at least one of these dose optimization techniques: automated e xposure control; mA and/or kV adjustment per patient size (includes targeted exams where dose is matc hed to clinical indication); or iterative reconstruction. FINDINGS: No evidence of intracranial hemorrhage or mass effect. Ventricular system and basal cisterns are antony nt. Moderate small vessel changes with moderate parenchymal volume loss. Chronic lacunar infarcts in the left benito radiata and right thalamus. Chronic infarct in the left anterior temporal lobe and le ft parasagittal occipital lobe with encephalomalacia. This is unchanged from previous. Paranasal sinuses and mastoid air cells are well aerated. .Normal visualized soft tissues. CT/CT head wo con* [id number] IMPRESSION: 1. No evidence of intracranial hemorrhage or mass effect. 2. Moderate small vessel changes with moderate parenchymal volume loss. 3. 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 4. No acute intracranial findings.
--- NOTE | 2021-06-08 10:11 | ECG_ITS ---
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 Measurements Intervals [place] Rate: 54 P: 65 NV: 160 QRS: -16 QRSD: 85 T: 48 QT: 441 QTc: 422 Interpretive Statements SINUS BRADYCARDIA Compared to ECG 11/10/2019 13:53:04 No significant changes Electronically Signed On 06-08-2021 17:03:30 CDT by Alesia Luis M.D. [email or web address]
[2021-06-08 10:14] VITALS: BP 206/75; PULSE 54; RESP 14; O2SAT 100
[2021-06-08 11:04] LABS: Basophils # 0.1 10^3/uL (0.0-0.1); Basophils % 0.6 %; Eosinophils # 0.3 10^3/uL (0.0-0.8); Eosinophils % 3.6 %; Hemoglobin 13.9 g/dL (11.5-15.3); Lymphocytes # 1.8 10^3/uL (0.8-4.8); Lymphocytes % 20.9 %; Mean Corpuscular HGB Conc 32.3 g/dL (30.0-36.0); Mean Corpuscular Hemoglobin 33.2 pg (28.0-34.0); Mean Corpuscular Volume 102.6 fl (81-99); Mean Platelet Volume 11.3 fL (7.4-10.4); Monocytes # 0.7 10^3/uL (0.2-0.9); Monocytes % 8.6 %; Neutrophils # 5.65 10^3/uL (1.8-7.7); Neutrophils % 65.9 %; Nucleated Red Blood Cells % 0 %; Platelet Count 142 10^3/cmm (130-400); Red Blood Count 4.19 10^6/uL (4.1-5.3); Red Cell Distribution Width 13.8 % (12.1-15.1); White Blood Count 8.6 10^3/uL (4.0-10.0)
[2021-06-08 11:22] VITALS: BP 207/82; PULSE 55; RESP 19; O2SAT 11
[2021-06-08 11:23] LABS: Add Urine Microscopic? NO; Charge for UA Resulting for Rev
[2021-06-08 11:27] LABS: Bilirubin Urine Neg (Negative); Blood Urine Neg (Negative); Glucose Urine UA Norm (Normal); Ketones Urine Negative (Negative); Leukocyte Esterase Urine Negative (Negative); Nitrate Urine Negative (Negative); Protein Urine Neg (Negative); Specific Gravity, Urine 1.015 (1.005-1.030); Urine Appearance Clear (CLEAR); Urine Color Yellow (Yellow); Urobilinogen Urine Norm (Negative); pH Urine 5 (5-7)
[2021-06-08 11:27] LABS: Glucose Point of Care 91 mg/dL (70-110)
[2021-06-08 11:36] LABS: Alanine Aminotransferase 12 U/L (0-33); Albumin Level 3.9 g/dL (3.5-5.2); Alkaline Phosphatase 85 IU/L (35-105); Anion Gap 11.6 (5-19); Aspartate Amino Transferase 19 U/L (0-32); Blood Urea Nitrogen 24 mg/dL (8-23); Calcium 8.8 mg/dL (8.5-10.5); Carbon Dioxide 30 mmol/L (22-29); Chloride 106 mmol/L (98-107); Glucose 90 mg/dL (65-115); Osmolality Calculated 300 mOsm/kg (285-295); Potassium 4.6 mmol/L (3.5-5.1); Sodium 143 mmol/L (136-145); Total Bilirubin 0.4 mg/dL (0.15-1.2); Total Protein 5.9 g/dL (6.6-8.7)
[2021-06-08] MEDS: clopidogrel 75 mg Tablet PO (12:05)
[2021-06-08] MEDS: hyDRALAzine 20 mg/mL INJ 1 mL 10 MG IVP (12:05)
[2021-06-08] MEDS: lisinopril 10 mg Tablet PO (12:05)
[2021-06-08] MEDS: carvedilol 6.25 mg Tablet PO (12:08)
[2021-06-08 12:51] VITALS: BP 160/71; PULSE 55; RESP 19; TEMP 37.1; O2SAT 96
== END 2021-06-08 12:59 | disposition home or self-care (01) ==
PROVIDERS: Emergency Provider Family Medicine; PCP Electrodiagnostic Medicine
DX: G45.9 Transient cerebral ischemic attack, unspecified (principal); F03.90 Unspecified dementia, unspecified severity, without behavioral disturbance, psychotic disturbance, mood disturbance, and anxiety; Z79.82 Long term (current) use of aspirin; Z79.02 Long term (current) use of antithrombotics/antiplatelets; Z87.891 Personal history of nicotine dependence; Z86.73 Personal history of transient ischemic attack (TIA), and cerebral infarction without residual deficits
CPT/HCPCS: 36416; 70450; 80053; 81003; 82962; 85025; 93005; 96374; 99283; J0360

== ENCOUNTER 2022-06-10 11:12 | Emergency (ER) | payer MEDICARE, OTHER, SELFPAY ==
[2022-06-10 11:16] VITALS: BMI 30.9
--- NOTE | 2022-06-10 11:23 | CTR_ITS ---
PROCEDURE INFORMATION: Exam: CT Head Without Contrast Exam date and time: 06/10/2022 11:32 AM Age: 82 years old Clinical indication: Fall with blunt trauma. TECHNIQUE: Imaging protocol: Computed tomography of the head without contrast. Radiation optimization: All CT scans at this facility use at least one of these dose optimization techniques: automated exposure control; mA and/or kV adjustment per patient size (includes targeted exams where dose is matched to clinical indication); or iterative reconstruction. COMPARISON: CT head wo con* [id number] 06/08/2021 10:36 AM RADIATION DOSE METRICS: Total DLP (mGy-cm): 884.73 FINDINGS: Brain: No acute intracranial hemorrhage. There is left occipital temporal encephalomalacia and gliosis. 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 No mass, mass effect or midline shift. There is moderate patchy subcortical and periventricular hypodensity, most commonly associated with small vessel ischemic disease of indeterminate age. Unchanged lacunar infarcts in the left cerebellar hemisphere. Cerebral ventricles: The ventricles are prominent, compatible with moderate parenchymal volume loss. There is ex vacuo dilatation of the atrium and temporal horn of the left lateral ventricle. Paranasal sinuses: The visualized paranasal sinuses are clear. Mastoid air cells: No mastoid effusion. Orbital cavities: The visualized orbits are unremarkable. Bones/joints: No acute fracture is seen. Soft tissues: Small right frontal scalp contusion. Vasculature: There is no evidence of acute large vessel infarct. CT/CT head wo con* [id number] IMPRESSION: 1. Small right frontal scalp contusion. 2. Moderate senescent changes as above. 3. No acute intracranial abnormality is identified.
--- NOTE | 2022-06-10 11:23 | XRR_ITS ---
PROCEDURE INFORMATION: Exam: XR Chest Exam date and time: 06/10/2022 11:41 AM Age: 82 years old Clinical indication: Fall with blunt trauma and chest TECHNIQUE: Imaging protocol: Radiologic exam of the chest. Views: 1 view. COMPARISON: CR XR chest 2V* [id number] 01/17/2017 9:54 AM FINDINGS: Lungs: No pulmonary consolidation. Pleural spaces: No pleural effusion. No pneumothorax. Heart/Mediastinum: The cardiac silhouette is unchanged. No gross evidence of pneumomediastinum. Bones/joints: Possible fracture involving the blade of the left scapula only identified on radiographs of the shoulder. XR/XR chest 1V portable [id number] IMPRESSION: 1. Possible fracture involving the blade of the left scapula only identified on radiographs of the shoulder. 2. No acute cardiopulmonary abnormality is identified.
--- NOTE | 2022-06-10 11:23 | CTR_ITS ---
PROCEDURE INFORMATION: Exam: CT Cervical Spine Without Contrast Exam date and time: 06/10/2022 11:32 AM Age: 82 years old Clinical indication: Fall with blunt trauma. TECHNIQUE: Imaging protocol: Computed tomography of the cervical spine without contrast. Radiation optimization: All CT scans at this facility use at least one of these dose optimization techniques: automated exposure control; mA and/or kV adjustment per patient size (includes targeted exams where dose is matched to clinical indication); or iterative reconstruction. COMPARISON: CT head wo con* [id number] 06/08/2021 10:36 AM RADIATION DOSE METRICS: Total DLP (mGy-cm): 323.7 FINDINGS: Grade 1 anterolistheses of C2, C3, C6, C7 and T1. No prevertebral soft tissue swelling is seen. Bnon-va-hvlsiarx degenerative disc disease is seen in the cervical spine. No acute fracture is identified. The atlantoaxial interval and craniocervical junction are maintained. Small, scattered cervical lymph nodes are noted. Solid pulmonary nodule in the right upper lobe measuring 4.1 mm. Solid pulmonary nodule in the right upper lobe measuring 3.2 mm. Heterogeneous thyroid with nodules measuring up to 2.2 cm. Recommend nonemergent thyroid ultrasound. CT/CT cervical spin wo con* [id number] IMPRESSION: 1. No acute cervical fracture is identified. 2. Heterogeneous thyroid with nodules measuring up to 2.2 cm. Recommend nonemergent thyroid ultrasound. 3. Solid pulmonary nodules measuring up to 4.1 mm. As per Fleischner Society 2017 guidelines for follow-up and management of pulmonary nodules: For patients at low risk (minimal or absent history of smoking and of other known risk factors), no routine follow-up. For patient at high risk (history of smoking or of other known risk factors), recommend optional CT at 12 months. 4. Zyqw-ud-yijzizru degenerative disc disease. COMMENTS: Consistent with the [employer]'s Incidental Findings Committee white paper (J Am Gigi Radiol 2015): In patients aged 35 years and older with an incidental thyroid nodule equal to or greater than 1.[address], MRI or extrathyroidal US, further evaluation with dedicated thyroid US is recommended for patients with normal life expectancy and without comorbidities. For smaller nodules without suspicious features, no further evaluation or follow up is recommended.
--- NOTE | 2022-06-10 11:23 | XRR_ITS ---
PROCEDURE INFORMATION: Exam: XR Left Shoulder Exam date and time: 06/10/2022 11:41 AM Age: 82 years old Clinical indication: Fall with blunt trauma and left shoulder pain. TECHNIQUE: Imaging protocol: Radiologic exam of the Left shoulder. Views: 2 or more views. COMPARISON: CT cervical spin wo con* [id number] 06/10/2022 11:32 AM FINDINGS: Bones/joints: Probable subtle fracture involving the blade of the scapula. Correlate for tenderness. Consider CT. Mild degenerative changes at the glenohumeral and acromioclavicular joints. Soft tissues: There is soft tissue swelling superior to the shoulder. XR/XR shoulder LT min 2V* [id number] IMPRESSION: 1. Probable subtle fracture involving the blade of the scapula. Correlate for tenderness. Consider CT. 2. Soft tissue swelling superior to the shoulder. 3. Please see dedicated
[2022-06-10 12:14] LABS: Basophils # 0.1 10^3/uL (0.0-0.1); Basophils % 0.6 %; Eosinophils # 0.3 10^3/uL (0.0-0.8); Eosinophils % 3.3 %; Hematocrit 44.9 % (37.0-47.0); Hemoglobin 14.8 g/dL (11.5-15.3); Lymphocytes # 1.6 10^3/uL (0.8-4.8); Lymphocytes % 18.8 %; Mean Corpuscular Hemoglobin 33.4 pg (28.0-34.0); Mean Corpuscular Volume 101.4 fl (81-99); Mean Platelet Volume 11.2 fL (7.4-10.4); Monocytes # 0.7 10^3/uL (0.2-0.9); Monocytes % 8.1 %; Neutrophils # 5.67 10^3/uL (1.8-7.7); Nucleated Red Blood Cells % 0 %; Platelet Count 148 10^3/cmm (130-400); Red Blood Count 4.43 10^6/uL (4.1-5.3); Red Cell Distribution Width 12.9 % (12.1-15.1); White Blood Count 8.2 10^3/uL (4.0-10.0)
--- NOTE | 2022-06-10 12:18 | ECG_ITS ---
[facility] Test Date: 2022-06-10 Pat Name: Adore Arnold Department: Room: Gender: Female Reservation Agent: : [id number] Requested By: Daniel Samano Order Number: [id number] Leonard MD: Bobo Cardenas M.D. Measurements Intervals [place] Rate: 55 P: -87 ME: 120 QRS: -29 QRSD: 80 T: 47 QT: 440 QTc: 423 Interpretive Statements JUNCTIONAL BRADYCARDIA BORDERLINE LEFT AXIS DEVIATION [QRS AXIS < -20] Compared to ECG 06/08/2021 11:06:28 Sinus bradycardia no longer present Electronically Signed On 06-11-2022 13:19:43 CDT by Bobo Cardenas M.D. [id number]
--- NOTE | 2022-06-10 12:19 | W.ED.GENADLT ---
HPI - General Adult General: Chief complaint: Fall Stated complaint: Left shoulder/neck pain post fall Time Seen by Provider: 06/10/22 11:15 History of Present Illness: Patient is an 82-year-old female currently awaiting home hospice presenting to the emergency room for evaluation of fall earlier today. Per patient's daughter, patient has had recurrent episode of fall in the last few weeks. Earlier today, patient was attempting to get out of bed when she fell. Patient landed on her left arm. Patient's dog alerted patient's daughter who noticed the patient was on the ground. Patient is not on any anticoagulation. It is unclear, patient has been laying there for. Patient reports left shoulder pain and left-sided neck pain. Daughter does not recall the patient had any chest pain, shortness breath, palpitation prior to the episode of fall. But the episode was unwitnessed. Patient has no other focal focal complaints at this time. Patient is AAO x1 to self only in the emergency room. Rest of hx limited. Onset: 3 hrs ago Duration:once Location:home Severity:moderate Associated symptoms: Deny chest pain, dyspnea, nausea, rash, palpitations or vomiting Review of Systems Const: Denies: fever(s) or chills Eyes: Denies: change in vision ENMT: Denies: mouth pain Card: Denies: chest pain or palpitations Resp: Denies: dyspnea or non-productive cough GI: Denies: abdominal pain, nausea, vomiting or diarrhea : Denies: dysuria Musc: Reports: neck pain (+L neck pain) and extremity pain (+L shoulder pain) Skin/Breast: Denies: rash or new lesions Neuro: Reports: other (+confusion); Denies: weakness in extremities Psych: Reports: other (Normal mood) Trey/Lymph: Denies: easy bruising PFSH ED PFSH: Medical History History of TIA (transient ischemic attack) Social History (Updated 06/10/22 @ 12:32 by Daniel Samano MD) Smoking and tobacco status: former smoker Alcohol intake: never Substance/Drug Use: never Physical Exam Const: COMMON NORMALS: alert HENMT: COMMON NORMALS: atraumatic HEAD & SCALP: atraumatic MOUTH: moist mucous membranes not abnormal Eye: COMMON NORMALS: EOMs intact bilaterally and conjunctivae normal CONJUNCTIVA: Yes conjunctivae normal Neck/C-Spine: COMMON NORMALS: full ROM and supple Resp: COMMON NORMALS: normal respiratory effort and clear to auscultation bilaterally AUSCULTATION: clear to auscultation bilaterally Cardio: COMMON NORMALS: regular rate RATE: regular rate GI: COMMON NORMALS: Soft to palpation and non-tender PALPATION: Yes Soft to palpation Extremity: COMMON NORMALS: full ROM NARRATIVE EXTREMITY EXAM: + Range of motion of left shoulder intact, no focal tenderness palpation of the left upper extremity, 2+ radial pulses on the left side, [place] sensation intact in the right side Neuro: SENSORIUM/ORIENTATION: Yes alert MOTOR EXAM: No Abnormal motor strength present and Other motor observations present (no focal motor deficits) OTHER: AAOx1(self), moving all extremities, cranial nerves II through XII grossly intact Psych: COMMON NORMALS: speech normal SPEECH: Yes normal speech MOOD & AFFECT: Yes euthymic mood MDM - General Adult Medical Decision Making Patient is an 82-year-old female currently awaiting home hospice presenting to the emergency room for evaluation of fall earlier today. Patient reports left-sided neck pain and left shoulder pain. On exam, patient has full range of motion of the left shoulder. There is no midline C-spine tenderness palpation. Imaging study today including CT head, CT neck negative for any acute finding. X-ray of the shoulder is clear. X-ray of chest showed possible left-sided subtle scapular fracture. CT trauma evaluation of the chest negative for any signs of scapular fracture. At the present time, patient is pain-free. He was negative for UTI. Troponin with delta less than 5 today. EKG is nonischemic. Do not suspect unstable angina or other causes of acute fall. UA negative for UTI. Pulmonary nodule discussed extensively with patient's daughter Tracey. Patient's family has a copy of the report to go home with. Rx: Tylenol, lidocaine patch, and menthol PRN pain Disposition: Discharge. Patient counseled regarding diagnostic impression, treatment plan. Patient given ED strict return precautions to return for continuation, worsening, or development of new symptoms. Instructed to f/u w/ PCP regarding symptoms today. Patient verbalized understanding. Lab Data : 06/10/22 12:09 06/10/22 12:09 Radiology Impressions Cervical Spine CT 06/10/22 11:23 IMPRESSION: 1. No acute cervical fracture is identified. 2. Heterogeneous thyroid with nodules measuring up to 2.2 cm. Recommend nonemergent thyroid ultrasound. 3. Solid pulmonary nodules measuring up to 4.1 mm. As per Fleischner Society 2017 guidelines for follow-up and management of pulmonary nodules: For patients at low risk (minimal or absent history of smoking and of other known risk factors), no routine follow-up. For patient at high risk (history of smoking or of other known risk factors), recommend optional CT at 12 months. 4. Xjll-nd-qdcprtcg degenerative disc disease. COMMENTS: Consistent with the [employer]'s Incidental Findings Committee white paper (J Am Gigi Radiol 2015): In patients aged 35 years and older with an incidental thyroid nodule equal to or greater than 1.[address], MRI or extrathyroidal US, further evaluation with dedicated thyroid US is recommended for patients with normal life expectancy and without comorbidities. For smaller nodules without suspicious features, no further evaluation or follow up is recommended. Chest X-Ray 06/10/22 11:23 IMPRESSION: 1. Possible fracture involving the blade of the left scapula only identified on radiographs of the shoulder. 2. No acute cardiopulmonary abnormality is identified. Head CT 06/10/22 11:23 IMPRESSION: 1. Small right frontal scalp contusion. 2. Moderate senescent changes as above. 3. No acute intracranial abnormality is identified. Shoulder X-Ray 06/10/22 11:23 IMPRESSION: 1. Probable subtle fracture involving the blade of the scapula. Correlate for tenderness. Consider CT. 2. Soft tissue swelling superior to the shoulder. 3. Please see dedicated ADDENDUM: 06/10/22 0457 3. Please see dedicated should be removed from the report. Chest CTA 06/10/22 13:17 IMPRESSION: 1. Motion artifact compromises assessment for pulmonary embolus. No main, central or lobar pulmonary embolus. 2. The gallbladder has been removed. Extrahepatic biliary ductal dilatation is noted. This is common following cholecystectomy. Correlate with laboratory values to assess likelihood of biliary ductal obstruction. Consider ultrasound if clinically warranted. 3. Cardiomegaly with coronary artery disease. 4. Small hiatal hernia. 5. Mild right hilar lymphadenopathy. 6. No acute posttraumatic finding is identified. COMMENTS: Consistent with the [place]'s Incidental Findings Committee white paper (J Am Gigi Radiol 2015): In patients aged 35 years and older with an incidental thyroid nodule equal to or greater than 1.[address], MRI or extrathyroidal US, further evaluation with dedicated thyroid US is recommended for patients with normal life expectancy and without comorbidities. For smaller nodules without suspicious features, no further evaluation or follow up is recommended. Laboratory Results WBC 8.2 10^3/uL (4.0-10.0) 06/10/22 12:09 RBC 4.43 10^6/uL (4.1-5.3) 06/10/22 12:09 Hgb 14.8 g/dL (11.5-15.3) 06/10/22 12:09 Hct 44.9 % (37.0-47.0) 06/10/22 12:09 MCV 101.4 fl (81-99) H 06/10/22 12:09 MCH 33.4 pg (28.0-34.0) 06/10/22 12:09 MCHC 33.0 g/dL (30.0-36.0) 06/10/22 12:09 RDW 12.9 % (12.1-15.1) 06/10/22 12:09 Plt Count 148 10^3/cmm (130-400) 06/10/22 12:09 MPV 11.2 fL (7.4-10.4) H 06/10/22 12:09 Neut % (Auto) 69.0 % 06/10/22 12:09 Lymph % (Auto) 18.8 % 06/10/22 12:09 [place] % (Auto) 8.1 % 06/10/22 12:09 Eos % (Auto) 3.3 % 06/10/22 12:09 Baso % (Auto) 0.6 % 06/10/22 12:09 Neut # (Auto) 5.67 10^3/uL (1.8-7.7) 06/10/22 12:09 Lymph # (Auto) 1.6 10^3/uL (0.8-4.8) 06/10/22 12:09 [place] # (Auto) 0.7 10^3/uL (0.2-0.9) 06/10/22 12:09 Eos # (Auto) 0.3 10^3/uL (0.0-0.8) 06/10/22 12:09 Baso # (Auto) 0.1 10^3/uL (0.0-0.1) 06/10/22 12:09 Nucleated RBC % (auto) 0 % 06/10/22 12:09 Nucleated RBCs # 0.0 /100WBC 06/10/22 12:09 Sodium 144 mmol/L (136-145) 06/10/22 12:09 Potassium 4.7 mmol/L (3.5-5.1) 06/10/22 12:09 Chloride 106 mmol/L (98-107) 06/10/22 12:09 Carbon Dioxide 26 mmol/L (22-29) 06/10/22 12:09 Anion Gap 16.7 (5-19) 06/10/22 12:09 BUN 19 mg/dL (8-23) 06/10/22 12:09 Creatinine 0.9 mg/dL (0.5-0.9) 06/10/22 12:09 GFR Calculation Not Reportable 06/10/22 12:09 Glucose 93 mg/dL (65-115) 06/10/22 12:09 Calculated Osmolality 300 mOsm/kg (285-295) H 06/10/22 12:09 Calcium 9.6 mg/dL (8.5-10.5) 06/10/22 12:09 Total Bilirubin 0.9 mg/dL (0.15-1.2) 06/10/22 12:09 AST 29 U/L (0-32) 06/10/22 12:09 ALT 23 U/L (0-33) 06/10/22 12:09 Alkaline Phosphatase 110 U/L (35-105) H 06/10/22 12:09 Troponin T Baseline 15 ng/L (0-10) H 06/10/22 12:09 Troponin T 120 Minute 13.85 ng/L (0-10) H 06/10/22 14:34 Delta Troponin T -1.15 ABS# (0-10) L 06/10/22 14:34 Total Protein 6.7 g/dL (6.6-8.7) 06/10/22 12:09 Albumin 3.9 g/dL (3.5-5.2) 06/10/22 12:09 Globulin 2.8 g/dL (1.3-4.6) 06/10/22 12:09 Lipase 27 U/L (13-60) 06/10/22 12:09 Urine Color Straw (Yellow) 06/10/22 12:09 Urine Appearance Clear (CLEAR) 06/10/22 12:09 Urine pH 8 (5-7) H 06/10/22 12:09 Ur Specific [place] 1.010 (1.005-1.030) 06/10/22 12:09 Urine Protein Neg (Negative) 06/10/22 12:09 Urine Glucose (UA) Norm (Normal) 06/10/22 12:09 Urine Ketones Negative (Negative) 06/10/22 12:09 Urine Blood Neg (Negative) 06/10/22 12:09 Urine Nitrate Negative (Negative) 06/10/22 12:09 Urine Bilirubin Neg (Negative) 06/10/22 12:09 Prot Sulfosalicylic Acd Negative (Negative) 06/10/22 12:09 Urine Urobilinogen Norm mg/dL (Negative) 06/10/22 12:09 Ur Leukocyte Esterase Trace (Negative) H 06/10/22 12:09 Urine RBC None /hpf (0-2) 06/10/22 12:09 Urine WBC 0-4 /hpf (0-5) H 06/10/22 12:09 Ur Squamous Epith Cells 0-4 /hpf (0-5) H 06/10/22 12:09 Amorphous Sediment Not Reportable 06/10/22 12:09 Urine Bacteria Trace /hpf (NONE) 06/10/22 12:09 Imaging Data Other Imaging: Radiologist's impression: [address] [address] [address] Scan Report Signed Patient: Adore Arnold Unit #: [id number] : 1940 Age/Sex: 82 / F ADM Date: 06/10/22 Loc: ER Room/Bed: Attending Dr: Ordering Provider/Ordering MD: Daniel Samano MD Date of Service: 06/10/22 Procedure(s): CT angio chest 92441 Accession Number(s): [id number] Report Number: [id number] PROCEDURE INFORMATION: Exam: CTA Chest With Contrast Exam date and time: 06/10/2022 2:08 PM Age: 82 years old Clinical indication: Fall with blunt trauma and pain. Chest pressure and pain following a fall. TECHNIQUE: Imaging protocol: Computed tomographic angiography of the chest with contrast. 3D rendering (Not supervised by radiologist): MIP and/or 3D reconstructed images were created by the technologist. Radiation optimization: All CT scans at this facility use at least one of these dose optimization techniques: automated exposure control; mA and/or kV adjustment per patient size (includes targeted exams where dose is matched to clinical indication); or iterative reconstruction. Contrast material: OMNI 350; Contrast volume: 95 ml; Contrast route: INTRAVENOUS (IV);? COMPARISON: CT chest w con* [id number] 07/01/2016 1:23 PM RADIATION DOSE METRICS: Total DLP (mGy-cm): 829.46 FINDINGS: Pulmonary arteries: Motion artifact compromises assessment for pulmonary embolus. No main, central or lobar pulmonary embolus. Aorta: No thoracic aortic aneurysm. No thoracic aortic dissection. Thyroid: A subcentimeter thyroid nodule is too small to accurately characterize and requires no follow-up. Lungs: Dependent atelectasis is noted bilaterally. No pulmonary mass. Pleural spaces: No pleural effusion. No pneumothorax. Heart: The heart is enlarged. Coronary arterial calcifications are noted. No pericardial effusion. Lymph nodes: A right hilar lymph node measures 1.0 x 1.2 cm. Diaphragm: Small hiatal hernia. Gallbladder and bile ducts: The gallbladder has been removed. Extrahepatic biliary ductal dilatation is noted. This is common following cholecystectomy. Correlate with laboratory values to assess likelihood of biliary ductal obstruction. Consider ultrasound if clinically warranted. Bones/joints: No acute fracture is identified. Soft tissues:? No subcutaneous soft tissue swelling is identified. CT/CT angio chest [id number] IMPRESSION: 1. Motion artifact compromises assessment for pulmonary embolus. No main, central or lobar pulmonary embolus. 2. The gallbladder has been removed. Extrahepatic biliary ductal dilatation is noted. This is common following cholecystectomy. Correlate with laboratory values to assess likelihood of biliary ductal obstruction. Consider ultrasound if clinically warranted. 3. Cardiomegaly with coronary artery disease. 4. Small hiatal hernia. 5. Mild right hilar lymphadenopathy. 6. No acute posttraumatic finding is identified. ? COMMENTS: Consistent with the [place]'s Incidental Findings Committee white paper (J Am Gigi Radiol 2015): In patients aged 35 years and older with an incidental thyroid nodule equal to or greater than 1.[address], MRI or extrathyroidal US, further evaluation with dedicated thyroid US is recommended for patients with normal life expectancy and without comorbidities. For smaller nodules without suspicious features, no further evaluation or follow up is recommended. ? Dictated By: Colby Chacko Signed By: Colby Chacko Signed Date/Time: 06/10/22 1435 DD/ [address] [address] [address] Scan Report Signed Patient: dAore Arnold Unit #: [id number] : 1940 Age/Sex: 82 / F ADM Date: 06/10/22 Loc: ER Room/Bed: Attending Dr: Ordering Provider/Ordering MD: Daniel Samano MD Date of Service: 06/10/22 Procedure(s): CT angio chest [id number] Accession Number(s): [id number] Report Number: [id number] PROCEDURE INFORMATION: Exam: CTA Chest With Contrast Exam date and time: 06/10/2022 2:08 PM Age: 82 years old Clinical indication: Fall with blunt trauma and pain. Chest pressure and pain following a fall. TECHNIQUE: Imaging protocol: Computed tomographic angiography of the chest with contrast. 3D rendering (Not supervised by radiologist): MIP and/or 3D reconstructed images were created by the technologist. Radiation optimization: All CT scans at this facility use at least one of these dose optimization techniques: automated exposure control; mA and/or kV adjustment per patient size (includes targeted exams where dose is matched to clinical indication); or iterative reconstruction. Contrast material: OMNI 350; Contrast volume: 95 ml; Contrast route: INTRAVENOUS (IV);? COMPARISON: CT chest w con* [id number] 07/01/2016 1:23 PM RADIATION DOSE METRICS: Total DLP (mGy-cm): 829.46 FINDINGS: Pulmonary arteries: Motion artifact compromises assessment for pulmonary embolus. No main, central or lobar pulmonary embolus. Aorta: No thoracic aortic aneurysm. No thoracic aortic dissection. Thyroid: A subcentimeter thyroid nodule is too small to accurately characterize and requires no follow-up. Lungs: Dependent atelectasis is noted bilaterally. No pulmonary mass. Pleural spaces: No pleural effusion. No pneumothorax. Heart: The heart is enlarged. Coronary arterial calcifications are noted. No pericardial effusion. Lymph nodes: A right hilar lymph node measures 1.0 x 1.2 cm. Diaphragm: Small hiatal hernia. Gallbladder and bile ducts: The gallbladder has been removed. Extrahepatic biliary ductal dilatation is noted. This is common following cholecystectomy. Correlate with laboratory values to assess likelihood of biliary ductal obstruction. Consider ultrasound if clinically warranted. Bones/joints: No acute fracture is identified. Soft tissues:? No subcutaneous soft tissue swelling is identified. CT/CT angio chest [id number] IMPRESSION: 1. Motion artifact compromises assessment for pulmonary embolus. No main, central or lobar pulmonary embolus. 2. The gallbladder has been removed. Extrahepatic biliary ductal dilatation is noted. This is common following cholecystectomy. Correlate with laboratory values to assess likelihood of biliary ductal obstruction. Consider ultrasound if clinically warranted. 3. Cardiomegaly with coronary artery disease. 4. Small hiatal hernia. 5. Mild right hilar lymphadenopathy. 6. No acute posttraumatic finding is identified. ? COMMENTS: Consistent with the [employer]'s Incidental Findings Committee white paper (J Am Gigi Radiol 2015): In patients aged 35 years and older with an incidental thyroid nodule equal to or greater than 1.[address], MRI or extrathyroidal US, further evaluation with dedicated thyroid US is recommended for patients with normal life expectancy and without comorbidities. For smaller nodules without suspicious features, no further evaluation or follow up is recommended. ? Dictated By: Colby Chacko Signed By: Colby Chacko Signed Date/Time: 06/10/22 1435 DD/ [address] [address] [address] Scan Report Signed Patient: Adore Arnold Unit #: [id number] : 1940 Age/Sex: 82 / F ADM Date: 06/10/22 Loc: ER Room/Bed: Attending Dr: Ordering Provider/Ordering MD: Daniel Samano MD Date of Service: 06/10/22 Procedure(s): CT head wo con* [id number] Accession Number(s): [id number] Report Number: [id number] PROCEDURE INFORMATION: Exam: CT Head Without Contrast Exam date and time: 06/10/2022 11:32 AM Age: 82 years old Clinical indication: Fall with blunt trauma. TECHNIQUE: Imaging protocol: Computed tomography of the head without contrast. Radiation optimization: All CT scans at this facility use at least one of these dose optimization techniques: automated exposure control; mA and/or kV adjustment per patient size (includes targeted exams where dose is matched to clinical indication); or iterative reconstruction. COMPARISON: CT head wo con* [id number] 06/08/2021 10:36 AM RADIATION DOSE METRICS: Total DLP (mGy-cm): 884.73 FINDINGS: Brain: No acute intracranial hemorrhage. There is left occipital temporal encephalomalacia and gliosis. 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 No mass, mass effect or midline shift. There is moderate patchy subcortical and periventricular hypodensity, most commonly associated with small vessel ischemic disease of indeterminate age. Unchanged lacunar infarcts in the left cerebellar hemisphere. Cerebral ventricles: The ventricles are prominent, compatible with moderate parenchymal volume loss. There is ex vacuo dilatation of the atrium and temporal horn of the left lateral ventricle. Paranasal sinuses: The visualized paranasal sinuses are clear. Mastoid air cells: No mastoid effusion. Orbital cavities: The visualized orbits are unremarkable. Bones/joints: No acute fracture is seen. Soft tissues: Small right frontal scalp contusion. Vasculature: There is no evidence of acute large vessel infarct. CT/CT head wo con* [id number] IMPRESSION: 1. Small right frontal scalp contusion. 2. Moderate senescent changes as above. 3. No acute intracranial abnormality is identified. ? Dictated By: Colby Chacko Signed By: Colby Chacko Signed Date/Time: 06/10/22 1200 DD/ [address] [address] [address] Scan Report Signed Patient: Adore Arnold Unit #: [id number] : 1940 Age/Sex: 82 / F ADM Date: 06/10/22 Loc: ER Room/Bed: Attending Dr: Ordering Provider/Ordering MD: Daniel Samano MD Date of Service: 06/10/22 Procedure(s): CT head wo con* [id number] Accession Number(s): [id number] Report Number: [id number] PROCEDURE INFORMATION: Exam: CT Head Without Contrast Exam date and time: 06/10/2022 11:32 AM Age: 82 years old Clinical indication: Fall with blunt trauma. TECHNIQUE: Imaging protocol: Computed tomography of the head without contrast. Radiation optimization: All CT scans at this facility use at least one of these dose optimization techniques: automated exposure control; mA and/or kV adjustment per patient size (includes targeted exams where dose is matched to clinical indication); or iterative reconstruction. COMPARISON: CT head wo con* [id number] 06/08/2021 10:36 AM RADIATION DOSE METRICS: Total DLP (mGy-cm): 884.73 FINDINGS: Brain: No acute intracranial hemorrhage. There is left occipital temporal encephalomalacia and gliosis. 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 No mass, mass effect or midline shift. There is moderate patchy subcortical and periventricular hypodensity, most commonly associated with small vessel ischemic disease of indeterminate age. Unchanged lacunar infarcts in the left cerebellar hemisphere. Cerebral ventricles: The ventricles are prominent, compatible with moderate parenchymal volume loss. There is ex vacuo dilatation of the atrium and temporal horn of the left lateral ventricle. Paranasal sinuses: The visualized paranasal sinuses are clear. Mastoid air cells: No mastoid effusion. Orbital cavities: The visualized orbits are unremarkable. Bones/joints: No acute fracture is seen. Soft tissues: Small right frontal scalp contusion. Vasculature: There is no evidence of acute large vessel infarct. CT/CT head wo con* [id number] IMPRESSION: 1. Small right frontal scalp contusion. 2. Moderate senescent changes as above. 3. No acute intracranial abnormality is identified. ? Dictated By: Colby Chacko Signed By: Colby Chacko Signed Date/Time: 06/10/22 1200 DD/ 1132 Adore Arnold??82??F??1940 ? Allergy/Adv: No Known Allergies Close Chest CTA (Signed) Colby Chacko - 06/10/22 Shoulder X-Ray (Signed) Colby Chacko - 06/10/[address] (Signed) Colby Chacko - 06/10/22 Chest X-Ray (Signed) Colby Chacko - 06/10/[address] (Signed) GinnaColby - 06/10/[address] (Signed) Fernando Lindquist - 06/08/[address] (Signed) KatyinocenciaMoiz barnes - 07/23/[address] (Signed) Moiz Cerda - 07/23/[address] (Signed) Allison Valiente - 11/10/19 Launch?[facility] [address] [place] [address] CT Scan Report Signed Patient: Adore Arnold Unit #: [id number] : 1940 Age/Sex: 82 / F ADM Date: 06/10/22 Loc: ER Room/Bed: Attending Dr: Ordering Provider/Ordering MD: Daniel Samano MD Date of Service: 06/10/22 Procedure(s): CT cervical spin wo con* [id number] Accession Number(s): [id number] Report Number: [id number] PROCEDURE INFORMATION: Exam: CT Cervical Spine Without Contrast Exam date and time: 06/10/2022 11:32 AM Age: 82 years old Clinical indication: Fall with blunt trauma. TECHNIQUE: Imaging protocol: Computed tomography of the cervical spine without contrast. Radiation optimization: All CT scans at this facility use at least one of these dose optimization techniques: automated exposure control; mA and/or kV adjustment per patient size (includes targeted exams where dose is matched to clinical indication); or iterative reconstruction. COMPARISON: CT head wo con* [id number] 06/08/2021 10:36 AM RADIATION DOSE METRICS: Total DLP (mGy-cm): 323.7 FINDINGS: ?Grade 1 anterolistheses of C2, C3, C6, C7 and T1. ?No prevertebral soft tissue swelling is seen. ?Thja-ir-atbemeaj degenerative disc disease is seen in the cervical spine. ?No acute fracture is identified. ?The atlantoaxial interval and craniocervical junction are maintained. ?Small, scattered cervical lymph nodes are noted. ?Solid pulmonary nodule in the right upper lobe measuring 4.1 mm. Solid pulmonary nodule in the right upper lobe measuring 3.2 mm. ?Heterogeneous thyroid with nodules measuring up to 2.2 cm. Recommend nonemergent thyroid ultrasound. CT/CT cervical spin wo con* [id number] IMPRESSION: 1. No acute cervical fracture is identified. 2. Heterogeneous thyroid with nodules measuring up to 2.2 cm. Recommend nonemergent thyroid ultrasound. 3. Solid pulmonary nodules measuring up to 4.1 mm. As per Fleischner Society 2017 guidelines for follow-up and management of pulmonary nodules: For patients at low risk (minimal or absent history of smoking and of other known risk factors), no routine follow-up. For patient at high risk (history of smoking or of other known risk factors), recommend optional CT at 12 months. 4. Rpoy-sh-yqkbkwxx degenerative disc disease. ? COMMENTS: Consistent with the [employer]'s Incidental Findings Committee white paper (J Am Gigi Radiol 2015): In patients aged 35 years and older with an incidental thyroid nodule equal to or greater than 1.[address], MRI or extrathyroidal US, further evaluation with dedicated thyroid US is recommended for patients with normal life expectancy and without comorbidities. For smaller nodules without suspicious features, no further evaluation or follow up is recommended. ? Dictated By: Colby Chacko Signed By: Colby Chacko Signed Date/Time: 06/10/22 1213 DD/ 1132 Allergies Close Chest CTA (Signed) Colby Chacko - 06/10/22 Shoulder X-Ray (Signed) Colby Chacko - 06/10/[address] (Signed) Colby Chacko - 06/10/22 Chest X-Ray (Signed) Colby Chacko - 06/10/[address] (Signed) Colby Chacko - 06/10/[address] (Signed) Fernando Lindquist - 06/08/[address] (Signed) Moiz Cerda - 07/23/[address] (Signed) Moiz Cerda - 07/23/[address] (Signed) Allison Valiente - 11/10/19 Launch?[employer] [address] [address] Scan Report Signed Patient: Adore Arnold [facility] [id number] : 1940 [id number] Age/Sex: 81 / F ADM Date: 06/08/21 Loc: ER Room/Bed: Attending Dr: Ordering Provider/Ordering MD: Dylan Navarro DO Date of Service: 06/08/21 Procedure(s): CT head wo con* [id number] Accession Number(s): [id number] Report Number: [id number] WS: [id number] CT HEAD TECHNIQUE: Noncontrast CT of the head obtained from the skullbase to the vertex. CLINICAL INFORMATION: Symptoms of Acute Stroke COMPARISON: None. DLP: 992.[address] scans at [facility] use at least one of these dose optimization techniques: automated exposure control; mA and/or kV adjustment per patient size (includes targeted exams where dose is matched to clinical indication); or iterative reconstruction. FINDINGS: No evidence of intracranial hemorrhage or mass effect. Ventricular system and basal cisterns are patent. Moderate small vessel changes with moderate parenchymal volume loss. Chronic lacunar infarcts in the left benito radiata and right thalamus. Chronic infarct in the left anterior temporal lobe and left parasagittal occipital lobe with encephalomalacia. This is unchanged from previous. Paranasal sinuses and mastoid air cells are well aerated. .Normal visualized soft tissues. CT/CT head wo con* [id number] IMPRESSION: ? 1.? No evidence of intracranial hemorrhage or mass effect. 2.? Moderate small vessel changes with moderate parenchymal volume loss. 3.? 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 4.? No acute intracranial findings. ? Dictated By: Fernando Lindquist MD Signed By: Fernando Lindquist MD Signed Date/Time: 06/08/21 1115 DD/ 1111 Discharge Plan Discharge Patient Disposition: Home Clinical Impression: Fall, Left shoulder pain Condition: Stable Prescriptions: New acetaminophen 500 mg tablet 500 mg PO Q6H PRN (Reason: pain) 5 Days Qty: 20 0RF lidocaine 5 % adhesive patch,medicated 1 patch topical DAILY PRN (Reason: pain) 30 Days Qty: 30 0RF Rx Instructions: leave on most painful area for up to 12 hrs Biofreeze (menthol) 5 % gel 1 ea topical BID PRN (Reason: pain) 10 Days Qty: 1 0RF No Action [place] 5-325 mg tablet 1 tab PO Q8H PRN (Reason: nasal fracture) Qty: 20 0RF aspirin 81 mg tablet,delayed release (DR/EC) 81 mg PO DAILY Qty: 30 0RF lisinopril 10 mg tablet 10 mg PO DAILY Qty: 30 0RF atorvastatin 40 mg Tablet 40 mg PO DAILY carvedilol 6.25 mg tablet 6.25 mg PO BID cod liver oil Capsule 1 cap PO DAILY clopidogrel 75 mg tablet 75 mg PO DAILY citalopram 20 mg Tablet 20 mg PO DAILY L-Lysine 500 mg Tablet 500 mg PO DAILY Ocuvite Eye Health 50 mg-15 unit- 4.5 mg-2.5 mg Tablet,Chewable 1 tab PO DAILY Discharge Orders: Discharge ED (Routine); Ordered 06/10/22 Ordered By: Daniel Samano Referrals: Abdi Jara DO [Primary Care Provider] - Discharge Diet: Advance as tolerated Discharge Activity: Increase activity as tolerated Patient Instructions: Fall Prevention (ED), Opioid Safety Activity Restrictions/Additional Instructions: Come back if you have any new or concerning issues. Here's a copy of your CT report. Please follow up with a environmental technical officer for lung nodule. [address] [address] [address] Scan Report Signed Patient: Adore Arnold Unit #: [id number] : 1940 Age/Sex: 82 / F ADM Date: 06/10/22 Loc: ER Room/Bed: Attending Dr: Ordering Provider/Ordering MD: Daniel Samano MD Date of Service: 06/10/22 Procedure(s): CT cervical spin wo con* [id number] Accession Number(s): [id number] Report Number: [id number] PROCEDURE INFORMATION: Exam: CT Cervical Spine Without Contrast Exam date and time: 06/10/2022 11:32 AM Age: 82 years old Clinical indication: Fall with blunt trauma. TECHNIQUE: Imaging protocol: Computed tomography of the cervical spine without contrast. Radiation optimization: All CT scans at this facility use at least one of these dose optimization techniques: automated exposure control; mA and/or kV adjustment per patient size (includes targeted exams where dose is matched to clinical indication); or iterative reconstruction. COMPARISON: CT head wo con* [id number] 06/08/2021 10:36 AM RADIATION DOSE METRICS: Total DLP (mGy-cm): 323.7 FINDINGS: ?Grade 1 anterolistheses of C2, C3, C6, C7 and T1. ?No prevertebral soft tissue swelling is seen. ?Tyys-iv-dpeltexq degenerative disc disease is seen in the cervical spine. ?No acute fracture is identified. ?The atlantoaxial interval and craniocervical junction are maintained. ?Small, scattered cervical lymph nodes are noted. ?Solid pulmonary nodule in the right upper lobe measuring 4.1 mm. Solid pulmonary nodule in the right upper lobe measuring 3.2 mm. ?Heterogeneous thyroid with nodules measuring up to 2.2 cm. Recommend nonemergent thyroid ultrasound. CT/CT cervical spin wo con* [id number] IMPRESSION: 1. No acute cervical fracture is identified. 2. Heterogeneous thyroid with nodules measuring up to 2.2 cm. Recommend nonemergent thyroid ultrasound. 3. Solid pulmonary nodules measuring up to 4.1 mm. As per Fleischner Society 2017 guidelines for follow-up and management of pulmonary nodules: For patients at low risk (minimal or absent history of smoking and of other known risk factors), no routine follow-up. For patient at high risk (history of smoking or of other known risk factors), recommend optional CT at 12 months. 4. Oyzn-tm-[id number] degenerative disc disease. ? COMMENTS: Consistent with the [employer]'s Incidental Findings Committee white paper (J Am Gigi Radiol 2015): In patients aged 35 years and older with an incidental thyroid nodule equal to or greater than 1.[address], MRI or extrathyroidal US, further evaluation with dedicated thyroid US is recommended for patients with normal life expectancy and without comorbidities. For smaller nodules without suspicious features, no further evaluation or follow up is recommended. ? 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
[2022-06-10 12:36] LABS: Troponin(5th) Baseline 15 ng/L (0-10)
[2022-06-10 12:39] LABS: Alanine Aminotransferase 23 U/L (0-33); Albumin Level 3.9 g/dL (3.5-5.2); Alkaline Phosphatase 110 U/L (35-105); Blood Urea Nitrogen 19 mg/dL (8-23); Calcium 9.6 mg/dL (8.5-10.5); Carbon Dioxide 26 mmol/L (22-29); Chloride 106 mmol/L (98-107); Globulin 2.8 g/dL (1.3-4.6); Glucose 93 mg/dL (65-115); Lipase 27 U/L (13-60); Osmolality Calculated 300 mOsm/kg (285-295); Sodium 144 mmol/L (136-145); Total Bilirubin 0.9 mg/dL (0.15-1.2); Total Protein 6.7 g/dL (6.6-8.7)
[2022-06-10 12:43] LABS: Anion Gap 16.7 (5-19); Potassium 4.7 mmol/L (3.5-5.1)
[2022-06-10 12:44] LABS: Aspartate Amino Transferase 29 U/L (0-32)
--- NOTE | 2022-06-10 13:17 | CTR_ITS ---
PROCEDURE INFORMATION: Exam: CTA Chest With Contrast Exam date and time: 06/10/2022 2:08 PM Age: 82 years old Clinical indication: Fall with blunt trauma and pain. Chest pressure and pain following a fall. TECHNIQUE: Imaging protocol: Computed tomographic angiography of the chest with contrast. 3D rendering (Not supervised by radiologist): MIP and/or 3D reconstructed images were created by the technologist. Radiation optimization: All CT scans at this facility use at least one of these dose optimization techniques: automated exposure control; mA and/or kV adjustment per patient size (includes targeted exams where dose is matched to clinical indication); or iterative reconstruction. Contrast material: OMNI 350; Contrast volume: 95 ml; Contrast route: INTRAVENOUS (IV); COMPARISON: CT chest w con* [id number] 07/01/2016 1:23 PM RADIATION DOSE METRICS: Total DLP (mGy-cm): 829.46 FINDINGS: Pulmonary arteries: Motion artifact compromises assessment for pulmonary embolus. No main, central or lobar pulmonary embolus. Aorta: No thoracic aortic aneurysm. No thoracic aortic dissection. Thyroid: A subcentimeter thyroid nodule is too small to accurately characterize and requires no follow-up. Lungs: Dependent atelectasis is noted bilaterally. No pulmonary mass. Pleural spaces: No pleural effusion. No pneumothorax. Heart: The heart is enlarged. Coronary arterial calcifications are noted. No pericardial effusion. Lymph nodes: A right hilar lymph node measures 1.0 x 1.2 cm. Diaphragm: Small hiatal hernia. Gallbladder and bile ducts: The gallbladder has been removed. Extrahepatic biliary ductal dilatation is noted. This is common following cholecystectomy. Correlate with laboratory values to assess likelihood of biliary ductal obstruction. Consider ultrasound if clinically warranted. Bones/joints: No acute fracture is identified. Soft tissues: No subcutaneous soft tissue swelling is identified. CT/CT angio chest [id number] IMPRESSION: 1. Motion artifact compromises assessment for pulmonary embolus. No main, central or lobar pulmonary embolus. 2. The gallbladder has been removed. Extrahepatic biliary ductal dilatation is noted. This is common following cholecystectomy. Correlate with laboratory values to assess likelihood of biliary ductal obstruction. Consider ultrasound if clinically warranted. 3. Cardiomegaly with coronary artery disease. 4. Small hiatal hernia. 5. Mild right hilar lymphadenopathy. 6. No acute posttraumatic finding is identified. COMMENTS: Consistent with the [employer]'s Incidental Findings Committee white paper (J Am Gigi Radiol 2015): In patients aged 35 years and older with an incidental thyroid nodule equal to or greater than 1.[address], MRI or extrathyroidal US, further evaluation with dedicated thyroid US is recommended for patients with normal life expectancy and without comorbidities. For smaller nodules without suspicious features, no further evaluation or follow up is recommended.
--- NOTE | 2022-06-10 13:51 | ECG_ITS ---
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 Measurements Intervals [place] Rate: 53 P: 56 NE: 157 QRS: -26 QRSD: 83 T: 51 QT: 447 QTc: 422 Interpretive Statements SINUS BRADYCARDIA BORDERLINE LEFT AXIS DEVIATION [QRS AXIS < -20] Compared to ECG 06/10/2022 12:18:12 No significant changes Electronically Signed On 06-11-2022 13:27:21 CDT by Bobo Cardenas M.D. [id number]
[2022-06-10] MEDS: iohexol 350 mg/mL 100 mL Btl IV (14:30)
[2022-06-10 15:11] LABS: Troponin 5 2HR 13.85 ng/L (0-10)
[2022-06-10 15:23] LABS: Troponin 5 2HR Delta -1.15 ABS# (0-10)
[2022-06-10 15:36] LABS: Urine Appearance Clear (CLEAR); Urine Color Straw (Yellow); pH Urine 8 (5-7)
[2022-06-10 15:37] LABS: Add Urine Culture? No; Add Urine Microscopic? YES; Bacteria Urine TRACE /hpf; Bilirubin Urine Neg (Negative); Blood Urine Neg (Negative); Glucose Urine UA Norm (Normal); Ketones Urine Negative (Negative); Leukocyte Esterase Urine Trace (Negative); Nitrate Urine Negative (Negative); Protein Urine Neg (Negative); Squamous Epithelial Cell Urine 0-4 /hpf (0-5); Sulfosalicylic Acid Urine Negative (Negative); Urobilinogen Urine Norm (Negative); WBC Urine 0-4 /hpf (0-5)
[2022-06-10 16:12] VITALS: BP 178/88; PULSE 66; RESP 14; O2SAT 94
== END 2022-06-10 16:16 | disposition home or self-care (01) ==
PROVIDERS: Emergency Provider Emergency Medicine; PCP Electrodiagnostic Medicine
DX: M25.512 Pain in left shoulder (principal); Z79.82 Long term (current) use of aspirin; Z79.02 Long term (current) use of antithrombotics/antiplatelets; Z86.73 Personal history of transient ischemic attack (TIA), and cerebral infarction without residual deficits; Z87.891 Personal history of nicotine dependence; W06.XXXA Fall from bed, initial encounter
CPT/HCPCS: 70450; 71045; 71275; 72125; 73030; 80053; 81001; 83690; 84484; 85025; 93005; 99285; Q9967